=== PATIENT | female | born 1950 | race Caucasian/White ===

== ENCOUNTER 2019-06-25 14:20 | Inpatient (IN) ==
[2019-06-25 15:02] LABS: Anion Gap 14.4 mmol/L (6.8-13.8); BUN/Creatinine Ratio 16.4 (9.0-21.6); Blood Urea Nitrogen 11 mg/dL (3-23); Carbon Dioxide 25.5 mmol/L (24-32.6); Chloride 82 mmol/L (97-106); Glucose * 129 mg/dL (70-110); Potassium 5.9 mmol/L (3.4-4.6)
[2019-06-25 15:06] LABS: Sodium 116 mmol/L (132-142)
[2019-06-25] MEDS: NORMAL SALINE 1,000 ML IV PRN (17:48)
[2019-06-25] MEDS ORDERED: SIMVASTATIN 40 MG TABLET PO SCH (18:00)
--- NOTE | 2019-06-25 18:07 | HP ---
Chief Complaint - Chief Complaint Date of Service: 06/25/19 Time of Service: 17:54 Chief Complaint: hyponatremia History of Present Illness: Pt. had lab done today. Her potassium is elevated at 5.9. However, the Na+ is now low at 116. She is asymptomatic with this. The etiology is unknown at this point. She is not on any diuretic therapy. She also has a compression fracture of L2 that occured from a fall last March. She was to start on Allondrinate but has taken it before and had GI upset from it and doesn't want to take it. I have suggested Prolia. She takes Lisinopril for her BP but since it is potassium sparing I will stop it for now. If the BP goes up to a treatable level I will use a Amlodipine 2.5 mg daily. She would be a good candidate for Kyphoplasty when she is over this e-lyte imbalance. Medical History (Updated 06/25/19 @ 18:07 by Ted King DO) Hypertension (Chronic) Onset Date: Unknown Hyperlipidemia (Chronic) Onset Date: Unknown GERD (gastroesophageal reflux disease) (Chronic) Onset Date: Unknown Chronic back pain (Chronic) Onset Date: Unknown Anxiety (Acute) Onset Date: Unknown Back pain Onset Date: ~2009 Work comp injury Claustrophobia Onset Date: Unknown Iron deficiency anemia Onset Date: Unknown Left knee pain Onset Date: ~2016 Osteoporosis Onset Date: ~2012 Tibial plateau fracture, left Onset Date: Unknown Hypokalemia Onset Date: Unknown Surgical History: Surgical History (Updated 06/25/19 @ 18:07 by Ted King DO) History of appendectomy Onset Date: ~1959 Family History: Family History (Updated 06/13/18 @ 12:45 by Claudia Nunez RN) Father MVA (motor vehicle accident) Sister Heart disease Hypertension Social History: (Last Reviewed 06/25/19 @ 16:59 by Connie Low RN) Social History: adopted: No foster care: No correction: No Marital status: lives independently: No household members: spouse caregiver/support person: No current occupational status: retired Highest education level completed: Associate degree: occupat Service: No Tobacco: Smoking Status: Current some day smoker tobacco type: cigarettes Smoking cigarettes per day: 10.0 Smoking packs per day: 0.5 Alcohol: alcohol intake: current alcohol intake frequency: holiday/special occasion Substance Use: substance use type: does not use Dietary Habits: caffeine: No Review Of Systems (GEN) - Review of Systems Generalized/Overall Review: Present: No Symptoms Reported EENTM: Present: No Symptoms Reported Respiratory: Present: No Symptoms Reported Cardiac: Present: No Symptoms Reported Abdominal: Present: No Symptoms Reported Genitourinary: Present: No Symptoms Reported Musculoskeletal: Present: Back Pain - 2 month old compression fracture of L2. Neurological: Present: No Symptoms Reported Skin: Present: No Symptoms Reported Endocrine: Present: No Symptoms Reported Misc: All systems neg except as marked Immunizations: IMMUNIZATION HX Immunizations Up to Date Yes History of Influenza Vaccine No Hx Pneumococcal Vaccination No Allergies/Adverse Reactions: Allergies Allergy/AdvReac Type Severity Reaction Status Date / Time codeine Allergy Severe respiratory Verified 06/25/19 16:56 Penicillins Allergy Swelling Verified 06/25/19 16:56 of Tongue folic acid AdvReac Intermediate extremity Verified 06/25/19 16:56 swelling Home Medications: HOME MEDICATIONS calcium carbonate 500 mg calcium (1,250 mg) tablet 500 mg PO DAILY tab 06/13/18 [Last Taken Unknown] ferrous sulfate 325 mg (65 mg iron) tablet 325 mg PO DAILY tab 06/13/18 [Last Taken Unknown] omega-3 fatty acids-fish oil 684 mg-1,200 mg capsule,delayed release 1 cap PO DAILY cap 06/13/18 [Last Taken Unknown] lisinopril 40 mg tablet 40 mg PO DAILY #90 tab 01/03/19 [Last Taken Unknown] metoprolol succinate ER 50 mg tablet,extended release 24 hr 50 mg PO DAILY #90 tab 01/03/19 [Last Taken Unknown] simvastatin 40 mg tablet 40 mg PO DAILY #90 tab 03/11/19 [Last Taken Unknown] omeprazole 20 mg capsule,delayed release 20 mg PO BID #180 cap 04/22/19 [Last Taken Unknown] diazepam 5 mg tablet 5 mg PO BID PRN #60 tab 05/30/19 [Last Taken Unknown] alendronate 70 mg tablet 70 mg PO QWEEK #13 tab 06/16/19 [Last Taken Unknown] Cyanocobalamin (Vitamin B-12) [Vitamin B12] 2,500 mcg PO DAILY 06/25/19 [Last Taken Unknown] Exam - Exam Vital Signs: Vital Signs - Last Taken Temp 36 C 06/25/19 16:36 Pulse 79 06/25/19 16:36 Resp 18 06/25/19 16:36 BP 150/81 H 06/25/19 16:36 Pulse Ox 100 06/25/19 16:36 Constitutional: Present: Alert, Oriented x3, Cooperative, Well developed, Well nourished, Mild distress - due to back pain but refuses pain meds. ENT Exam: Present: normal ENT inspection Eye Exam: bilateral eye: normal inspection, PERRL, EOMI Neck: Present: non-tender Back Exam: Present: vertebral tenderness - @ L2 Respiratory: Present: chest non-tender, lungs clear, normal breath sounds, no respiratory distress, no accessory muscle use Cardiovascular/Chest: Present: normal peripheral pulses, regular rate, rhythm, no chest tenderness, no edema, no gallop, no JVD, no murmur, no rub Peripheral Pulses: carotid (R): 2+, carotid (L): 2+, radial (R): 2+, radial (L): 2+ Abdomen: Present: Normal bowel sounds, soft, nontender, nondistended, no rebound tenderness, no hepatospenomegaly, no masses /Rectal: Present: Exam deferred Extremity: Present: normal range of motion, non-tender, normal inspection, no pedal edema, no calf tenderness, normal capillary refill Skin Exam: Present: normal color, warm/dry, no cyanosis Lymphatic: Present: no adenopathy Neurologic: Present: health sanitarian II-XII nml as tested, normal cerebellar test, no motor/sensory deficits, alert, normal mood/affect, oriented x 3, other - No seizure activity and no seizure history. Appearance: Present: appropriate appearance, appropriate insight, neat, no memory impairment Eye contact: Present: cooperative, good eye contact, normal speech Thoughts: Present: normal thought pattern, no apparent hallucination Diagnostic Studies: Abnormal Lab Results 06/25/19 Range/Units 14:26 Sodium 116 L* D (132-142) mmol/L Plasma Sodium 116 L* (130-142) mmol/L Potassium 5.9 H D (3.4-4.6) mmol/L Chloride 82 L (97-106) mmol/L Anion Gap 14.4 H (6.8-13.8) mmol/L Random Glucose 129 H (70-110) mg/dL Laboratory Results Sodium 116 mmol/L (132-142) L* D 06/25/19 14:26 116 mmol/L (130-142) L* 06/25/19 14:26 Potassium 5.9 mmol/L (3.4-4.6) H D 06/25/19 14:26 Chloride 82 mmol/L (97-106) L 06/25/19 14:26 Carbon Dioxide 25.5 mmol/L (24-32.6) 06/25/19 14:26 14.4 mmol/L (6.8-13.8) H 06/25/19 14:26 BUN 11 mg/dL (3-23) D 06/25/19 14:26 0.67 mg/dL (0.4-1.4) 06/25/19 14:26 Est GFR (Non-Af Amer) 93 mL/min (60-130) 06/25/19 14:26 16.4 (9.0-21.6) 06/25/19 14:26 129 mg/dL (70-110) H 06/25/19 14:26 Calcium 10.0 mg/dL (7.9-10.9) 06/25/19 14:26 Assessment/Plan - Narrative Narrative: 1. IV NS @ 125cc/hr. 2. Recheck lab in the morning 3. CXR in the morning - Assessment/Plan (1) Hyperkalemia Problem: Acute (2) Hyponatremia Problem: Acute (3) Compression fracture of L2 Problem: Chronic Qualifiers: Encounter type: initial encounter Qualified Code(s): S32.020A - Wedge compression fracture of second lumbar vertebra, initial encounter for closed fracture (4) Senile osteoporosis Problem: Chronic
[2019-06-25] MEDS: PANTOPRAZOLE SODIUM 20 MG TABLET.DR PO SCH (18:44)
[2019-06-26] MEDS: NORMAL SALINE 1,000 ML IV PRN ×3 (01:44→16:40)
[2019-06-26 05:37] LABS: Hematocrit 32.9 % (37.0-47.0); Hemoglobin 11.7 gm/dL (12.5-16.0); Mean Cell Volume 99.4 fl (78-100); Mean Corpuscular Hemoglobin 35.3 pg (27-31); Mean Corpuscular Hgb Conc 35.6 g/dl (32-36); Mean Platelet Volume 8.7 fl (8-12.5); Neutrophil # 2.6 K/mm3 (1.3-6.0); Neutrophil % 59.7 % (42-75.0); Platelet Count 174 K/mm3 (150-450); Red Blood Count 3.31 M/mm3 (4.2-5.4); Red Cell Distribution Width 12.4 % (11.5-14.0); White Blood Count 4.3 K/mm3 (4.0-10.5)
[2019-06-26 05:51] LABS: Albumin * 3.4 gm/dl (3.4-5.0); Anion Gap 13.7 mmol/L (6.8-13.8); BUN/Creatinine Ratio 13.1 (9.0-21.6); Bilirubin, Total 0.4 mg/dL (0.0-1.1); Ca. Corrected For Albumin 8.9 mg/dL (8.4-10.2); Calcium * 8.7 mg/dL (7.9-10.9); Potassium 4.7 mmol/L (3.4-4.6); Total Protein 6.6 gm/dL (6.2-8.2)
[2019-06-26] MEDS: FERROUS SULFATE 325 MG TABLET PO SCH (08:09)
[2019-06-26] MEDS: METOPROLOL SUCCINATE 50 MG TABLET.SA PO SCH (08:09)
[2019-06-26] MEDS ORDERED: LISINOPRIL 40 MG TABLET PO SCH (09:00)
[2019-06-26] MEDS: DIAZEPAM 5 MG TABLET PO PRN ×3 (10:33→21:35)
[2019-06-26] MEDS: PANTOPRAZOLE SODIUM 20 MG TABLET.DR PO SCH ×3 (10:58→16:39)
[2019-06-26] MEDS: amLODIPine BESYLATE 5 MG TABLET PO SCH (11:47)
[2019-06-26 13:37] LABS: Anion Gap 13.7 mmol/L (6.8-13.8); BUN/Creatinine Ratio 9.1 (9.0-21.6); Calcium * 8.1 mg/dL (7.9-10.9); Estimated Creat Clear 69.5; Potassium 4.7 mmol/L (3.4-4.6)
[2019-06-26 17:51] LABS: Anion Gap 13.3 mmol/L (6.8-13.8); BUN/Creatinine Ratio 10.2 (9.0-21.6); Calcium * 8.6 mg/dL (7.9-10.9); Carbon Dioxide 26.5 mmol/L (24-32.6); Estimated Creat Clear 77.7; Potassium 4.8 mmol/L (3.4-4.6)
--- NOTE | 2019-06-26 19:16 | PN ---
Maisha Note - Interim Date: 06/26/19 Time: 19:14 Narrative: 06/26/19 19:14 Jyotsna is feeling fine tonight. She would like to have her monitor taken off. Since her potassium is back down to normal range I concur that the monitor can be discontinued. I will recheck lab on her tomorrow morning. Unfortunately her sodium only came to 124 today. All measured again in the morning and consider hypertonic saline if is not improved.
[2019-06-26] MEDS ORDERED: SIMVASTATIN 40 MG TABLET PO SCH (21:00)
[2019-06-27] MEDS: NORMAL SALINE 1,000 ML IV PRN ×2 (00:21→08:14)
[2019-06-27 05:50] LABS: Hematocrit 29.1 % (37.0-47.0); Hemoglobin 10.3 gm/dL (12.5-16.0); Mean Corpuscular Hemoglobin 35.8 pg (27-31); Mean Corpuscular Hgb Conc 35.4 g/dl (32-36); Neutrophil # 2.4 K/mm3 (1.3-6.0); Neutrophil % 63.3 % (42-75.0); Platelet Count 163 K/mm3 (150-450); Red Blood Count 2.88 M/mm3 (4.2-5.4); Red Cell Distribution Width 12.6 % (11.5-14.0); White Blood Count 3.8 K/mm3 (4.0-10.5)
[2019-06-27 05:51] LABS: Anion Gap 10.8 mmol/L (6.8-13.8); BUN/Creatinine Ratio 7.1 (9.0-21.6); Bilirubin, Total 0.3 mg/dL (0.0-1.1); Ca. Corrected For Albumin 8.5 mg/dL (8.4-10.2); Carbon Dioxide 27.5 mmol/L (24-32.6); Magnesium 0.9 mg/dL (1.2-2.8); Potassium 4.3 mmol/L (3.4-4.6); Total Protein 5.8 gm/dL (6.2-8.2)
[2019-06-27] MEDS: amLODIPine BESYLATE 5 MG TABLET PO SCH (08:10)
[2019-06-27] MEDS: METOPROLOL SUCCINATE 50 MG TABLET.SA PO SCH (08:10)
[2019-06-27] MEDS: FERROUS SULFATE 325 MG TABLET PO SCH (08:10)
--- NOTE | 2019-06-27 09:25 | PN ---
Subjective - Date and Time Seen Date: 06/26/19 Time: 08:00 Subjective Narrative: Enid had an uneventful night. Her sodium this morning is 123 and potassium is down to 4.7. I wanted her sodium greater than 125 before discharging. In looking back over the last 6 years she has had a history of chronic hyponatremia usually running in the 120s range but she is never had one this low. The cause is unknown. She appears to be euvolemic. A spot urinary sodium is low yuan ggesting her kidneys are preserving sodium. She is not on any medications to cause an SIADH syndrome. Objective - Review of Systems Generalized/Overall Review: Reports: No Symptoms Reported EENTM: Reports: No Symptoms Reported Respiratory: Reports: No Symptoms Reported Cardiac: Reports: No Symptoms Reported Abdominal: Reports: No Symptoms Reported Genitourinary Symptoms: Reports: No Symptoms Reported Musculoskeletal Complaints: Reports: No Symptoms Reported Neurological: Reports: No Symptoms Reported Skin: Reports: No Symptoms Reported Endocrine: Reports: No Symptoms Reported - Vitals Vitals: Last Vital Signs Temp 36.4 C 06/27/19 06:11 Pulse 80 06/27/19 08:10 Resp 12 06/27/19 06:11 BP 159/84 H 06/27/19 08:10 Pulse Ox 97 06/27/19 06:11 - Abnormal Lab Findings Abnormal Lab Findings: Abnormal Lab Results 06/26/19 06/26/19 06/27/19 Range/Units 13:20 17:40 05:35 WBC (4.0-10.5) K/mm3 RBC (4.2-5.4) M/mm3 Hgb (12.5-16.0) gm/dL Hct (37.0-47.0) % MCV (78-100) fl MCH (27-31) pg Monocytes % (0.0-9) % Lymphocytes # (1.5-3.5) k/mm3 Sodium 123 L 124 L 129 L (132-142) mmol/L Plasma Sodium 124 L 124 L 129 L (130-142) mmol/L Potassium 4.7 H 4.8 H (3.4-4.6) mmol/L Chloride 89 L 89 L 95 L (97-106) mmol/L BUN/Creatinine Ratio 7.1 L (9.0-21.6) Random Glucose 136 H D (70-110) mg/dL Magnesium 0.9 L (1.2-2.8) mg/dL Total Protein 5.8 L (6.2-8.2) gm/dL Albumin 3.0 L (3.4-5.0) gm/dl 06/27/19 Range/Units 05:35 WBC 3.8 L (4.0-10.5) K/mm3 RBC 2.88 L (4.2-5.4) M/mm3 Hgb 10.3 L (12.5-16.0) gm/dL Hct 29.1 L (37.0-47.0) % MCV 101.0 H (78-100) fl MCH 35.8 H (27-31) pg Monocytes % 11.3 H (0.0-9) % Lymphocytes # 0.89 L (1.5-3.5) k/mm3 Sodium (132-142) mmol/L Plasma Sodium (130-142) mmol/L Potassium (3.4-4.6) mmol/L Chloride (97-106) mmol/L BUN/Creatinine Ratio (9.0-21.6) Random Glucose (70-110) mg/dL Magnesium (1.2-2.8) mg/dL Total Protein (6.2-8.2) gm/dL Albumin (3.4-5.0) gm/dl - EKG/Xray Findings EKG: NSR EKG read: Reviewed by me Interpretation: Reviewed by me - Exam Constitutional: Present: Alert, Oriented x3, Cooperative, Well developed, Well nourished, No distress ENT Exam: Present: normal ENT inspection, hearing grossly normal, pharynx normal, TMs normal Neck: Present: non-tender, full range of motion, supple, normal inspection Breasts: Present: Exam deferred Respiratory: Present: chest non-tender, lungs clear, normal breath sounds, no respiratory distress, no accessory muscle use Cardiovascular/Chest: Present: normal peripheral pulses, regular rate, rhythm, no chest tenderness, no edema, no gallop, no JVD, no murmur, no rub Abdomen: Present: Normal bowel sounds, soft, nontender, nondistended, no rebound tenderness, no hepatospenomegaly, no masses /Rectal: Present: Exam deferred Extremity: Present: normal range of motion, non-tender, normal inspection, no pedal edema, no calf tenderness, normal capillary refill Skin Exam: Present: normal color, warm/dry, no cyanosis Neurologic: 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 - Problems/Diagnosis (1) Hyperkalemia Problem: Acute (2) Hyponatremia Problem: Acute (3) Compression fracture of L2 Problem: Chronic Qualifiers: Encounter type: initial encounter Qualified Code(s): S32.020A - Wedge compression fracture of second lumbar vertebra, initial encounter for closed fracture (4) Senile osteoporosis Problem: Chronic
--- NOTE | 2019-06-27 09:36 | DS ---
(1) Hyperkalemia Problem: Resolved (2) Hyponatremia Problem: Chronic (3) Compression fracture of L2 Problem: Chronic Qualifiers: Encounter type: initial encounter Qualified Code(s): S32.020A - Wedge compression fracture of second lumbar vertebra, initial encounter for closed fracture (4) Senile osteoporosis Problem: Chronic Description of Stay: Jyotsna Moss is a 68-year-old female patient admitted through ER with hyperkalemia and hyponatremia. Potassium was 5.9 and sodium was 116. Etiology of the low sodium is unknown. Etiology of the potassium was because of the combination of taking oral potassium supplementation along with an RUEL inhibitor lisinopril. The potassium has corrected back to normal reference range. The sodium has improved from 116 on admission to 123 yesterday morning 124 before lunch and before supper yesterday and then up to 129 this morning. She has been totally asymptomatic with this. She appears to be euvolemic as there is no edema. Her renal function is completely normal. The cause of her chronic hyponatremia is unknown. In looking back at sodiums to 2012 they have always been low and usually in the 1 23-1 28 range. Procedures Performed: none Results and Findings: Lab Pending Results 06/25/19 14:26: Sodium 116 L* D, Plasma Sodium 116 L*, Potassium 5.9 H D, Chloride 82 L, Carbon Dioxide 25.5, Anion Gap 14.4 H, BUN 11 D, Creatinine 0.67, Est GFR (Non-Af Amer) 93, BUN/Creatinine Ratio 16.4, Random Glucose 129 H, Calcium 10.0 06/26/19 05:15: Ur Random Sodium 27 06/26/19 05:30: WBC 4.3, RBC 3.31 L, Hgb 11.7 L, Hct 32.9 L, MCV 99.4, MCH 35.3 H, MCHC 35.6, RDW 12.4, Plt Count 174, MPV 8.7, Immature Gran % (Auto) 0.50 H, Immature Gran # (Auto) 0.02, Neutrophils % 59.7, Lymphocytes % 26.9, Monocytes % 11.0 H, Eosinophils % 1.4, Basophils % 0.5, Nucleated RBC % 0.0, Neutrophils # 2.6, Lymphocytes # 1.15 L, Monocytes # 0.5, Eosinophils # 0.1, Absolute Basophils 0.0 06/26/19 05:30: Sodium 122 L, Plasma Sodium 122 L, Potassium 4.7 H D, Chloride 87 L, Carbon Dioxide 26.0, Anion Gap 13.7, BUN 8, Creatinine 0.61, Est GFR (Non- Af Amer) 103, BUN/Creatinine Ratio 13.1, Random Glucose 88 D, Calcium 8.7, Calcium Adj for Albumin 8.9, Total Bilirubin 0.4, AST 33, ALT 30, Alkaline Phosphatase 116, Total Protein 6.6, Albumin 3.4 06/26/19 13:20: Sodium 123 L, Plasma Sodium 124 L, Potassium 4.7 H, Chloride 89 L, Carbon Dioxide 25.0, Anion Gap 13.7, BUN 6, Creatinine 0.66, Est GFR (Non-Af Amer) 94, BUN/Creatinine Ratio 9.1, Random Glucose 136 H D, Calcium 8.1 06/26/19 17:40: Sodium 124 L, Plasma Sodium 124 L, Potassium 4.8 H, Chloride 89 L, Carbon Dioxide 26.5, Anion Gap 13.3, BUN 6, Creatinine 0.59, Est GFR (Non-Af Amer) 107, BUN/Creatinine Ratio 10.2, Random Glucose 102, Calcium 8.6 06/27/19 05:35: Sodium 129 L, Plasma Sodium 129 L, Potassium 4.3, Chloride 95 L, Carbon Dioxide 27.5, Anion Gap 10.8, BUN 4, Creatinine 0.56, Est GFR (Non-Af Amer) 114, BUN/Creatinine Ratio 7.1 L, Random Glucose 91, Calcium 8.0, Calcium Adj for Albumin 8.5, Magnesium 0.9 L, Total Bilirubin 0.3, AST 26, ALT 25, Alkaline Phosphatase 92, Total Protein 5.8 L, Albumin 3.0 L 06/27/19 05:35: WBC 3.8 L, RBC 2.88 L, Hgb 10.3 L, Hct 29.1 L, MCV 101.0 H, MCH 35.8 H, MCHC 35.4, RDW 12.6, Plt Count 163, MPV 9.0, Immature Gran % (Auto) 0.30 , Immature Gran # (Auto) 0.01, Neutrophils % 63.3, Lymphocytes % 23.5, Monocytes % 11.3 H, Eosinophils % 1.3, Basophils % 0.3, Nucleated RBC % 0.0, Neutrophils # 2.4, Lymphocytes # 0.89 L, Monocytes # 0.4, Eosinophils # 0.1, Absolute Basophils 0.0 Discharge Location: Home Disposition: Home self-care Condition: Good Discharge Activity: Activity as tolerated Discharge Diet: General/regular food, Other - Fluid restriction to 1500 cc/day from all sources Referrals: Ksenia Carlson, DEONTE [Primary Care Provider] - Additional Patient Instructions (free text): Fluid restriction to 1500 cc of fluid per day from all sources Repeat BMP in 1 week See primary care physician in 2 weeks -Please make TCM appointment unless shelter discharge, or if following up with outside provider. Thank you! Rozina @ [phone] or Ksenia at [facility]. Complete Home Medications List: Complete Home Medication List: calcium carbonate 500 mg calcium (1,250 mg) tablet 500 mg PO DAILY tab 06/13/18 ferrous sulfate 325 mg (65 mg iron) tablet 325 mg PO DAILY tab 06/13/18 omega-3 fatty acids-fish oil 684 mg-1,200 mg capsule,delayed release 1 cap PO DAILY cap 06/13/18 metoprolol succinate ER 50 mg tablet,extended release 24 hr 50 mg PO DAILY #90 tab 01/03/19 simvastatin 40 mg tablet 40 mg PO DAILY #90 tab 03/11/19 omeprazole 20 mg capsule,delayed release 20 mg PO BID #180 cap 04/22/19 diazepam 5 mg tablet 5 mg PO BID PRN #60 tab 05/30/19 alendronate 70 mg tablet 70 mg PO QWEEK #13 tab 06/16/19 Cyanocobalamin (Vitamin B-12) [Vitamin B12] 2,500 mcg PO DAILY 06/25/19 amLODIPine BESYLATE [Norvasc] 5 mg PO DAILY #30 tab 06/27/19
[2019-06-27] MEDS: DIAZEPAM 5 MG TABLET PO PRN (09:44)
[2019-06-27 10:31] VITALS: BP 140/74
== END 2019-06-27 10:31 | disposition home or self-care (01) | DRG 641 ==
LOC: LAB 14:20 → MS 14:20
PROVIDERS: ADMIT Family Medicine; ATTEND Family Medicine
DX: E87.1 Hypo-osmolality and hyponatremia; E87.5 Hyperkalemia; E78.5 Hyperlipidemia, unspecified; I10 Essential (primary) hypertension; S32.020A Wedge compression fracture of second lumbar vertebra, initial encounter for closed fracture; T50.3X5A Adverse effect of electrolytic, caloric and water-balance agents, initial encounter; M81.0 Age-related osteoporosis without current pathological fracture; K21.9 Gastro-esophageal reflux disease without esophagitis; F17.210 Nicotine dependence, cigarettes, uncomplicated; T46.4X5A Adverse effect of angiotensin-converting-enzyme inhibitors, initial encounter
CPT/HCPCS: 36415; 71020; 71046; 80048; 80053; 83735; 83930; 84300; 85025; 93005